=== PATIENT | female | born 1990 | race Caucasian/White ===

== ENCOUNTER 2016-12-07 22:47 | Emergency (ER) | payer OTHER ==
[~2016-12-07] VITALS: Ht 161.3 cm; Wt 83.9 kg
[2016-12-07 22:53] VITALS: BP 106/73
--- NOTE | 2016-12-07 23:32 | ED PSYCHIATRIC COMPLAINT ---
History of Present Illness General Chief Complaint: General Adult Stated Complaint: " HAVING A PAINC ATTACK" Source: patient Exam Limitations: no limitations Vital Signs & Intake/Output Vital Signs & Intake/Output Vital Signs Date Time Temp Pulse Resp B/P Pulse O2 O2 Flow FiO2 Ox Delivery Rate 12/07 2253 98.4 98 30 106/73 99 Room Air ED Intake and Output 12/08 0000 12/07 1200 Intake Total Output Total Balance Patient 185 lb Weight Allergies Coded Allergies: Penicillins (Intermediate, MOUTH SWELLING 12/07/16) banana (Intermediate, HIVES AND MOUTH SWELLING 12/07/16) kiwi (Intermediate, HIVES AND MOUTH SWELLING 12/07/16) orange (Intermediate, HIVES AND MOUTH SWELLING 12/07/16) pineapple (Intermediate, HIVES AND MOUTH SWELL 12/07/16) Uncoded Allergies: JAPANESE CHEESE (Intermediate, HIVES AND MOUTH SWELLING 12/07/16) Reconcile Medications Alprazolam (Xanax) 1 MG TABLET 1 TAB PO BID anxiety Divalproex Sodium 250 MG TABLET. 3 TAB PO BID BIPOLAR Triage Note: TRIAGE: PT TO ER C/C "I'VE BEEN OFF MY ANXIETY MEDICATION FOR THE LAST 8 MONTHS" R/T INSURANCE. 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 HX PTSD, UNSURE WHAT CAUSED PANIC ATTACK "OTHER THAN FLASHBACKS". PT TACHYPNIC AT TRIAGE, COACHED ON SLOW/DEEP BREATHING EXERCISES WITH MINIMAL EFFECTIVENESS. Triage Nurses Notes Reviewed? yes Onset: Abrupt Duration: hour(s): Timing: recent history : No Patient currently breastfeeds: No HPI: 26-year-old female with a history of anxiety and PTSD comes in with a complaint of a panic attack. Patient has had these in the past and feels same. Patient reports like she feels her heart racing and is difficult to breathe. Patient currently has moved to this area. Patient no longer has a psychiatrist. Patient also is running out of her Depakote. Denies any other associated symptoms. Denies any suicidal or homicidal ideation. Patient admits to having a history of cutting but has no thoughts of that currently and she has a child and wants to be there for him. (JENNYFER DUNCAN,NEVAEH) Past History Travel History Traveled to [place] past 21 day No Medical History Any Pertinent Medical History? 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 No (NEVAEH MASON) Review of Systems Review of Systems Constitutional: Reports: no symptoms. EENTM: Reports: no symptoms. Respiratory: Reports: no symptoms. Cardiovascular: Reports: no symptoms. GI: Reports: no symptoms. Genitourinary: Reports: no symptoms. Musculoskeletal: Reports: no symptoms. Skin: Reports: no symptoms. Neurological/Psychological: Reports: see HPI. Hematologic/Endocrine: Reports: no symptoms. Immunologic/Allergic: Reports: no symptoms. All Other Systems: Reviewed and Negative (NEVAEH MASON) Physical Exam Physical Exam General Appearance: well developed/nourished, mild distress Head: atraumatic Eyes: Bilateral: normal appearance, EOMI. Ears, Nose, Throat: normal ENT inspection, hearing grossly normal Neck: normal inspection Respiratory: no respiratory distress Cardiovascular: regular rate/rhythm Extremities: normal range of motion Neurological/Psychiatric: awake, agitated, alert, normal mood/affect, anxious Appearance/Memory/Insight: appropriate appearance Behavoir/Eye Contact/Speech: cooperative Thoughts/Hallucinations: normal thought pattern Skin: intact, normal color, warm/dry SAD PERSONS Done? patient not suicidal (NEVAEH MASON) Progress Differential Diagnosis: dementia, drug intoxication, drug overdose, drug withdrawal, electrolyte abnormality, encephalitis, hypoglycemia, hypothyroidism, IC hem/mass/tumor, meningitis, depression, anxiety, Plan of Care: 12/07/2016 11:42:56 PM (NEVAEH MASON) Departure Departure Disposition: HOME OR SELF CARE Condition: Stable Clinical Impression Primary Impression: Anxiety Referrals: PATIENT HAS NO PRIMARY CARE DR (PCP/Family) ELENITA FUNG,BRAYDEN Additional Instructions: Take Depakote and Chantix as prescribed. Follow-up with psychiatrist provided here. Return to the emergency room immediately if any suicidal or homicidal ideation or any other concerns worsening symptoms. Please go over all results of today's visit with your primary care doctor. Contact your primary care doctor to let them know you were here in the emergency room. There may be nonspecific findings which may not be related to your visit today here in the emergency room but may require further evaluation and chronic monitoring by your primary care doctor. If you had a laceration today the chance of foreign body always remains. You should follow-up with your primary care doctor for recheck in 3-5 days for a wound check. If you had an x-ray done there is a chance that a fracture could have been missed on initial read and you should follow-up with your primary care doctor for repeat x-rays if symptoms persist. If your blood pressure was elevated here in the emergency room please have rechecked by her primary care doctor within the next 48 hours by your primary care doctor. If you were prescribed a narcotic here in the emergency room or any type of controlled substances you're not allowed to drive while taking this medication or operate any type of heavy machinery. Narcotics can make you feel lightheaded dizziness nausea and can cause constipation. You may need to picker feeder a stool softener. Thank you for choosing [facility] emergency room. Please return to the emergency room immediately if you have any other concerns worsening of symptoms. Departure Forms: Customer Survey General Discharge Information Prescriptions: Current Visit Scripts Alprazolam (Xanax) 1 TAB PO BID #10 TAB Divalproex Sodium 3 TAB PO BID #60 TAB (NEVAEH MASON) PA/LEAD PL SQL DEVELOPER Co-Sign Statement Statement: ED Attending supervision documentation- [] I saw and evaluated the patient. I have also reviewed all the pertinent lab results and diagnostic results. I agree with the findings and the plan of care as documented in the PA's/LEAD PL SQL DEVELOPER's documentation. [X] I have reviewed the ED Record and agree with the PA's/LEAD PL SQL DEVELOPER's documentation. [] Additions or exceptions (if any) to the PAs/LEAD PL SQL DEVELOPER's note and plan are summarized below: [] (MARINA FUNG,NATALIIA)
[2016-12-07] MEDS ORDERED: DIVALPROEX SOD250 M2 PO (23:35)
[2016-12-07] MEDS ORDERED: XANAX1 M1 PO (23:35)
== END 2016-12-08 00:04 ==
LOC: ERH 22:47
DX: F41.9 Anxiety disorder, unspecified (principal)

== ENCOUNTER 2016-12-17 16:01 | Emergency (ER) | payer OTHER ==
[~2016-12-17] VITALS: Ht 161.3 cm; Wt 79.4 kg
[~2016-12-17 16:01] MED LIST: DIVALPROEX SOD250 M2 PO; XANAX1 M1 PO
[2016-12-17 16:17] VITALS: BP 122/84
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
[2016-12-17] MEDS ORDERED: ALPRAZOLAM0.5 M4 PO (19:39)
== END 2016-12-17 19:48 ==
LOC: ERH 16:01
DX: F41.9 Anxiety disorder, unspecified (principal); J02.9 Acute pharyngitis, unspecified
CPT/HCPCS: 80307; 81025